=== PATIENT | male | born 1965 | race Caucasian/White ===

== ENCOUNTER 2019-11-14 02:47 | Emergency (ER) | payer SELFPAY ==
[~2019-11-14 02:47] MED LIST: CYCL10 PO; HYDACE5 PO; IBUP800 PO; MECL25 PO; META800 PO; Naprosyn500 MG PO; Norco 5-325 Ta1 EACH PO; OXYACE5T PO; PRED10 PO; Prednisone20 MG PO
== END 2019-11-14 04:17 | disposition home or self-care (01) ==
DX: S86.912A Strain of unspecified muscle(s) and tendon(s) at lower leg level, left leg, initial encounter (principal); F17.220 Nicotine dependence, chewing tobacco, uncomplicated; X58.XXXA Exposure to other specified factors, initial encounter; Y93.67 Activity, basketball

== ENCOUNTER 2021-08-11 14:27 | Emergency (ER) | payer OTHER ==
[~2021-08-11] VITALS: Ht 172.7 cm; Wt 99.8 kg
[2021-08-11] MEDS ORDERED: CYCL10 PO (16:06)
== END 2021-08-11 16:35 | disposition home or self-care (01) ==
LOC: ER 14:27
DX: M62.830 Muscle spasm of back (principal); Z88.8 Allergy status to other drugs, medicaments and biological substances
CPT/HCPCS: 96374; 99283-25; J1885

== ENCOUNTER → 2024-02-15 | Outpatient (CLI) | payer OTHER | LOC: LAB SHORT 12:40 → LAB 12:40 | DX: Z12.5 Encounter for screening for malignant neoplasm of prostate (principal); R10.13 Epigastric pain | CPT/HCPCS: 87338 ==

== ENCOUNTER → 2025-05-15 | Outpatient (CLI) | payer OTHER ==
[2025-05-15 14:48] LABS: Hematocrit 43.2 % (37.0-53.0); Hemoglobin 14.1 g/dL (13.5-17.5); Mean Corpuscular HGB Conc 32.6 g/dL (31.5-36.5); Mean Corpuscular Volume 85 fL (80-100); NRBC ABSOLUTE 0.00 K/mm3 (0.00-0.02); NRBC Auto 0.0 /100 WBC (0.0-0.2); Platelet Count 285 K/mm3 (150-400); RDW Coefficient Variation 13.6 % (11.7-14.2); RDW Standard Deviation 42.3 fL (35.1-46.3)
[2025-05-15 15:44] LABS: BASOPHILS ABSOLUTE MAN 0.11 K/mm3 (0.00-0.23); BASOPHILS PERCENT MAN 1 % (0-2); EOSINOPHILS ABSOLUTE MAN 0.22 K/mm3 (0.00-0.68); EOSINOPHILS PERCENT MAN 2 % (0-6); LYMPHOCYTES ABSOLUTE MAN 3.39 K/mm3 (0.84-5.20); LYMPHOCYTES PERCENT MAN 30 % (21-46); MONOCYTES ABSOLUTE MAN 0.67 K/mm3 (0.16-1.47); MONOCYTES PERCENT MAN 6 % (4-13); NEUTROPHILS ABSOLUTE MAN 6.89 K/mm3 (1.96-9.15); SEG NEUTROPHILS PERCENT MAN 61 % (41-73)
== END ==
LOC: LAB SHORT 09:50 → LAB 09:50
PROVIDERS: Nurse Practitioner
DX: M10.9 Gout, unspecified (principal)
CPT/HCPCS: 84550; 85007; 85027